=== PATIENT | male | born 1960 | race Caucasian/White ===

== ENCOUNTER 2022-12-09 18:36 | Outpatient (CLI) | payer BC, SELFPAY | END 2022-12-09 18:37 | disposition home or self-care (01) | PROVIDERS: Visit Provider Nurse Practitioner Family | DX: R22.1 Localized swelling, mass and lump, neck (principal); Z12.5 Encounter for screening for malignant neoplasm of prostate; Z13.228 Encounter for screening for other metabolic disorders | CPT/HCPCS: 80048; 84153; 85025 ==

== ENCOUNTER 2023-01-06 06:59 | Outpatient (CLI) | payer BC, SELFPAY ==
--- NOTE | 2023-01-06 07:15 | CRLHL7_ITS ---
For Patients: As a result of the Century Cures Act, medical imaging exams and procedure reports are released immediately into your electronic medical record. You may view this report before your referring provider. If you have questions, please contact your health care provider. Examination: US abdominal aorta Indication: Abdominal aortic aneurysm screening. Technique: Lainez scale and color Doppler images of the aorta and common iliac arteries are obtained. Comparison: None Findings: Proximal aorta: 2.9 x 3.1 cm Mid aorta: 1.9 x 2.1 cm Distal aorta: 2.0 x 2.0 cm Right common iliac artery: 1.1 x 1.5 cm Left common iliac artery: 1.2 x 1.2 cm Recommended imaging interval for ectatic aorta: 3.0-3.4 cm: 3 years Impression: Proximal aorta measures up to 3.1 cm. Follow-up in 3 years recommended. Dictated by Denton Phoenix MD @ 01/06/2023 12:25:06 PM (Electronically Signed)
--- NOTE | 2023-01-06 08:00 | CRLHL7_ITS ---
For Patients: As a result of the Century Cures Act, medical imaging exams and procedure reports are released immediately into your electronic medical record. You may view this report before your referring provider. If you have questions, please contact your health care provider. INDICATION: RT posterior/lateral neck mass COMPARISON: None 02.16 TECHNIQUE: A CT volumetric acquisition was performed of the neck during intravenous infusion of 91 cc Isovue 370 nonionic intravenous contrast. Please note that all CT scans at this facility use dose modulation, iterative reconstruction, and/or weight-based dosing when appropriate to reduce radiation dose to as low as reasonably achievable. FINDINGS: The CT images demonstrate normal aeration of the mastoid air cells and middle ear cavities. The paranasal sinuses are clear. The nasopharynx appears normal. The parotid and submandibular glands are of normal size and have uniform enhancement. The oropharynx appears normal. The valleculae, epiglottis, aryepiglottic folds and piriform sinuses appear normal. There is a normal appearance of the larynx and subglottic trachea. The thyroid gland is of normal size and has uniform density. There is no evidence of lymphadenopathy within the anterior and posterior cervical triangles or within the supraclavicular region. Lung apices clear. 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 There is a circumscribed intramuscular fat signal intensity mass within the right posterior lateral neck corresponding to the palpable area of concern. This measures 3.7 x 2.7 x 7.8 cm. IMPRESSION: Right posterior-lateral neck intramuscular lipoma measuring 3.7 x 2.7 x 7.8 cm. No adenopathy. Please note that all CT scans at this facility use dose modulation, iterative reconstruction, and/or weight-based dosing when appropriate to reduce radiation dose to as low as reasonably achievable. Dictated by Denton Phoenix MD @ 01/06/2023 9:02:54 AM (Electronically Signed)
== END 2023-01-06 07:00 | disposition home or self-care (01) ==
PROVIDERS: PCP Nurse Practitioner Family; Visit Provider Nurse Practitioner Family
DX: R22.1 Localized swelling, mass and lump, neck (principal); D17.0 Benign lipomatous neoplasm of skin and subcutaneous tissue of head, face and neck; Z13.6 Encounter for screening for cardiovascular disorders; Z82.49 Family history of ischemic heart disease and other diseases of the circulatory system
CPT/HCPCS: 70491; 76706; Q9967